=== PATIENT | male | born 1980 | race Caucasian/White ===

== ENCOUNTER 2018-12-30 07:14 | Inpatient (IN) ==
--- NOTE | 2018-12-30 07:45 | Diag Imaging Result Doc PS360 ---
EXAM: CT HEAD W/O CONTRAST INDICATION: stroke like sx TECHNIQUE: This exam was performed using automated exposure control, adjustment of mA or kV according to patient size, and/or use of iterative reconstruction technique. COMPARISON: None. FINDINGS: There is no definite acute infarct given the limited sensitivity of CT versus MRI. There is no discrete intracranial mass, mass effect, or intracranial hemorrhage. The surrounding soft tissues and bony structures are essentially unremarkable. IMPRESSION: No evidence of acute intracranial pathology. Electronically signed by Charbel Williamson 12/30/2018 7:43 AM
[2018-12-30] MEDS ORDERED: NS 1,000 ML IV PRN (07:47)
--- NOTE | 2018-12-30 07:47 | PROVIDER DOCUMENTATION ---
HPI-Neurological Disorder - General Chief Complaint: Stroke-Like Symptoms Stated Complaint: rt sided weakness Time Seen by Provider: 12/30/18 07:45 Source: patient Allergies/Adverse Reactions: Patient Allergies Allergy/AdvReac Type Severity Reaction Status Date / Time haloperidol [From Haldol] Allergy Unknown Verified 12/30/18 08:00 haloperidol lactate * Allergy Unknown Verified 12/30/18 08:00 [From Haldol] ketorolac tromethamine * Allergy HIVES Verified 12/30/18 08:00 [From Toradol] olanzapine [From Zyprexa] Allergy Unknown Verified 12/30/18 08:00 ziprasidone HCl * Allergy Unknown Verified 12/30/18 08:00 [From Geodon] ziprasidone mesylate * Allergy Unknown Verified 12/30/18 08:00 [From Geodon] Home Medications: Home Medication List Medication Instructions Recorded Confirmed Last Taken Type NK [No Home Medications] 12/30/18 12/30/18 Unknown History - History of Present Illness-Neuro Nature of Presenting Problem: pt says that donated plasma yest, the went to [employer], ate burgerm fries, few drinks, then went home, watched football. Since donating, has had increasing pain, weakness to R extremities, could not lift either this am, no dificulty with left. Called EMS. No fever, no headache, no trouble with speech. Onset/Duration: reports: gradual Timing: reports: getting worse Any recent trauma/injury?: reports: none Associated Symptoms: reports: denies symptoms Similar Symptoms Previously?: No Recently seen or treated by another doctor?: No Review of Systems - Adult - REVIEW OF SYSTEMS - ADULT Constitutional: reports: no symptoms reported Eyes: reports: no symptoms reported Ears, Nose, Mouth & Throat: reports: no symptoms reported Cardiovascular: reports: no symptoms reported Respiratory: reports: no symptoms reported Gastrointestinal: reports: no symptoms reported Genitourinary: reports: no symptoms reported Musculoskeletal: reports: no symptoms reported Neurological: reports: see HPI, dizziness/vertigo (light headed, swimmy headed) Psychiatric: reports: no symptoms reported, see HPI, anxiety Endocrine: reports: no symptoms reported Hematologic/Lymphatic: reports: no symptoms reported Past History - Adult - PAST MEDICAL HISTORY-ADULT Review of Records: reports: Medications Reviewed Major Childhood Illnesses: reports: denies history Cardiovascular: reports: denies history Respiratory: reports: denies history Gastrointestinal: reports: denies history Obstetrical/Gynecological: reports: denies history Genitourinary: reports: denies history Musculoskeletal: reports: denies history Neurological: reports: denies history Endocrine/Immune: reports: denies history Other Conditions: reports: denies history - PRIOR SURGERIES/PROCEDURES Surgical/Procedure History: reports: tonsillectomy - IMMUNIZATION STATUS Childhood Immunizations: See Nurse Assessment Flu Vaccine: See Nurse Assessment - FAMILY HISTORY Family History: reviewed, not pertinent Physical Exam- Neurological - Physical Exam-Neuro Initial Vital Signs Reviewed: Yes General Appearance: appears well, alert, mild distress Eye Exam: bilateral eye: normal inspection, PERRL, EOMI HENMT: normocephalic/atraumatic, moist mucous membranes, normal ENT inspection, pharynx normal Head Injury: no evidence of injury Neck: full range of motion, supple, normal inspection Respiratory: lungs clear, normal breath sounds, no pleuratic chest pain, no respiratory distress, no accessory muscle use Cardiovascular: regular rate, rhythm, no edema, no gallop, no murmur Abdominal Exam: normal bowel sounds, non tender, soft Extremity: other (decreased motion R extremities, cannot lift RLE against gravity, can only partially lift RUE, sl pronator drift) fruit peeler Exam: normal hearing, normal speech, PERRL, other (sl decrease sensation R CN VII, O/W intact) Neurologic: other (see above) Integumentary: normal color, normal turgor, warm/dry Psych/Mental Status: normal mood/affect, normal thought content, normal thought process, oriented x 3 - Glascow Coma Scale Best Eye Response: (4) open spontaneously Best Verbal Response: (5) oriented Best Motor Response: (6) obeys commands Progress - PLAN OF CARE/RESULTS Progress/Plan/Lab Results: Vital Signs - 8 hr 12/30/18 07:25 12/30/18 07:27 12/30/18 07:30 Temperature 98.3 F Pulse Rate 70 64 Respiratory Rate 20 27 H Blood Pressure 144/87 137/85 O2 Sat by Pulse Oximetry 96 96 95 12/30/18 07:31 12/30/18 07:45 12/30/18 08:00 Temperature Pulse Rate 60 63 58 L Respiratory Rate 21 18 23 Blood Pressure 134/76 O2 Sat by Pulse Oximetry 95 95 96 12/30/18 08:01 12/30/18 09:41 Temperature 98.0 F Pulse Rate 57 L 70 Respiratory Rate 16 16 Blood Pressure 134/76 127/79 O2 Sat by Pulse Oximetry 96 96 Laboratory Results - last 24 hr 12/30/18 12/30/18 12/30/18 07:34 07:56 07:56 WBC 10.68 RBC 4.99 Hgb 15.4 Hct 43.8 MCV 87.8 MCH 30.9 MCHC 35.2 RDW Std Deviation 12.9 Plt Count 206 MPV 10.2 Immature Gran % (Auto) 0.2 Neut % (Auto) 77.4 H Lymph % (Auto) 11.7 L [place] % (Auto) 9.7 H Eos % (Auto) 0.6 Baso % (Auto) 0.4 Immature Gran # (Auto) 0.02 Neut # (Auto) 8.27 H Lymph # (Auto) 1.25 [place] # (Auto) 1.04 H Eos # (Auto) 0.06 Baso # (Auto) 0.04 PT INR PTT (Actin FS) Sodium Potassium Chloride Carbon Dioxide Anion Gap BUN Creatinine Estimated GFR/1.73 m2 BUN/Creatinine Ratio Glucose POC Glucose 111 H Calculated Osmolality Calcium Magnesium Total Bilirubin AST ALT Alkaline Phosphatase Troponin T Total Protein Albumin Globulin Albumin/Globulin Ratio Urine Source Urine Color Urine Turbidity Urine pH Ur Specific [place] Urine Protein Ur Glucose (Stick) Ur Ketones (Stick) Urine Blood Urine Nitrite Urine Bilirubin Urobilinogen Dipstick Urine Leukocytes Urine WBC (Auto) Urine RBC (Auto) U Epithel Cells (Auto) Urine Bacteria (Auto) Urine Crystals Small Round Cells Urine Casts Urine Yeast-like Cells Urine Opiates Screen Ur Oxycodone Screen Ur Methadone, Qual Ur Barbiturates Screen Ur Phencyclidine Scrn Ur Amphetamines Screen U Benzodiazepines Scrn Urine Cocaine Screen U Cannabinoids Screen Plasma/Serum Ethyl Alc 12/30/18 12/30/18 12/30/18 07:56 07:56 07:56 WBC RBC Hgb Hct MCV MCH MCHC RDW Std Deviation Plt Count MPV Immature Gran % (Auto) Neut % (Auto) Lymph % (Auto) [place] % (Auto) Eos % (Auto) Baso % (Auto) Immature Gran # (Auto) Neut # (Auto) Lymph # (Auto) [place] # (Auto) Eos # (Auto) Baso # (Auto) PT 13.1 INR 0.98 PTT (Actin FS) 26.7 Sodium 138 Potassium 4.2 Chloride 105 Carbon Dioxide 24 L Anion Gap 9 BUN 14 Creatinine 0.6 L Estimated GFR/1.73 m2 > 60 BUN/Creatinine Ratio 23 Glucose 125 H POC Glucose Calculated Osmolality 278 Calcium 8.4 L Magnesium 2.0 Total Bilirubin 1.52 H AST 9 L ALT 14 Alkaline Phosphatase 61 Troponin T < 0.010 Total Protein 5.4 L Albumin 3.6 Globulin 1.8 Albumin/Globulin Ratio 2.0 Urine Source Urine Color Urine Turbidity Urine pH Ur Specific [place] Urine Protein Ur Glucose (Stick) Ur Ketones (Stick) Urine Blood Urine Nitrite Urine Bilirubin Urobilinogen Dipstick Urine Leukocytes Urine WBC (Auto) Urine RBC (Auto) U Epithel Cells (Auto) Urine Bacteria (Auto) Urine Crystals Small Round Cells Urine Casts Urine Yeast-like Cells Urine Opiates Screen Ur Oxycodone Screen Ur Methadone, Qual Ur Barbiturates Screen Ur Phencyclidine Scrn Ur Amphetamines Screen U Benzodiazepines Scrn Urine Cocaine Screen U Cannabinoids Screen Plasma/Serum Ethyl Alc 12/30/18 12/30/18 08:59 08:59 WBC RBC Hgb Hct MCV MCH MCHC RDW Std Deviation Plt Count MPV Immature Gran % (Auto) Neut % (Auto) Lymph % (Auto) [place] % (Auto) Eos % (Auto) Baso % (Auto) Immature Gran # (Auto) Neut # (Auto) Lymph # (Auto) [place] # (Auto) Eos # (Auto) Baso # (Auto) PT INR PTT (Actin FS) Sodium Potassium Chloride Carbon Dioxide Anion Gap BUN Creatinine Estimated GFR/1.73 m2 BUN/Creatinine Ratio Glucose POC Glucose Calculated Osmolality Calcium Magnesium Total Bilirubin AST ALT Alkaline Phosphatase Troponin T Total Protein Albumin Globulin Albumin/Globulin Ratio Urine Source CLEAN CATCH Urine Color YELLOW Urine Turbidity HAZY Urine pH 8.0 Ur Specific [place] 1.027 Urine Protein 30 A Ur Glucose (Stick) NEGATIVE Ur Ketones (Stick) NEGATIVE Urine Blood MODERATE A Urine Nitrite NEGATIVE Urine Bilirubin NEGATIVE Urobilinogen Dipstick 2 A Urine Leukocytes LARGE A Urine WBC (Auto) 10-20 A Urine RBC (Auto) TNTC A U Epithel Cells (Auto) <10 Urine Bacteria (Auto) 1+ Urine Crystals NONE SEEN Small Round Cells Not Reportable Urine Casts Not Reportable Urine Yeast-like Cells Not Reportable Urine Opiates Screen NONE DETECTED Ur Oxycodone Screen NONE DETECTED Ur Methadone, Qual NONE DETECTED Ur Barbiturates Screen NONE DETECTED Ur Phencyclidine Scrn NONE DETECTED Ur Amphetamines Screen NONE DETECTED U Benzodiazepines Scrn NONE DETECTED Urine Cocaine Screen NONE DETECTED U Cannabinoids Screen PRESUMPTIVE POSITIVE A Plasma/Serum Ethyl Alc Orders Category Date Time Status Cardiac Monitoring DIRECTED Care 12/30/18 07:47 Active Finger Stick Blood Sugar (ED) DIRECTED Care 12/30/18 07:47 Completed Misc. NRSG Communication Order DIRECTED Care 12/30/18 07:47 Active Saline Loc NOW Care 12/30/18 07:47 Active CHEST-PORTABLE [RAD] Stat Exams 12/30/18 07:[address] HEAD W/O CONTRAST [CT] Stat Exams 12/30/18 07:15 Completed ALCOHOL BLOOD Stat Lab 12/30/18 07:56 Completed CBC WITH ELECTRONIC DIFF [HEME] Stat Lab 12/30/18 07:56 Completed COMPREHENSIVE METABOLIC PANEL [CHEM] Stat Lab 12/30/18 07:56 Completed MAGNESIUM [CHEM] Stat Lab 12/30/18 07:56 Completed PROTIME WITH INR [COAG] Stat Lab 12/30/18 07:56 Completed PTT [COAG] Stat Lab 12/30/18 07:56 Completed TROPONIN T Stat Lab 12/30/18 07:56 Completed URINALYSIS W/POSS RFLX CULT [URINALYSIS] Stat Lab 12/30/18 08:59 Completed URINE CULTURE [RM] Routine Lab 12/30/18 09:36 Received URINE DRUG SCREEN Stat Lab 12/30/18 08:59 Completed URINE MANUAL MICROSCOPIC [URINALYSIS] Stat Lab 12/30/18 08:59 Completed 0.9% Sodium Chloride Inj [Ns] 1,000 ml Med 12/30/18 07:47 Active IV 1,000 mls/hr CefTRIAXONE [Rocephin] 1 gm Med 12/30/18 10:17 Discontinued 0.9% Sodium Chloride Inj [Ns] 50 ml IV NOW EKG [EKG] Stat Ther 12/30/18 07:47 Ordered Result Diagrams: 12/30/18 07:56 12/30/18 07:56 - EKG 1 Time of EKG reading by physician:: 07:38 EKG Read and Signed by:: Suresh Bello EKG Interpretation (*Must complete 3 of following elements*): Normal Rate: 59 Rhythm: NSR QRS: normal ST Wave: normal - XRAY 1 XRAY Study: Chest Impression: Normal - CT/MRI 1 CT Study: Head Impression: Normal - CONSULTS/PCP/HOSPITALIST Notification #1 *Consult/PCP/Hospitalist*: Halie Time Discussed: 10:30 Consult Disposition: Will see in ED, Admit Departure - Departure Date of Disposition Decision: 12/30/18 Time of Disposition Decision: 10:30 (0) DIAGNOSIS: CVA (cerebral vascular accident) Disposition: ADMITTED INPATIENT 09 Certified Medical Emergency: Emergent Condition: Good Referrals and Follow-Ups: None,PCP [Primary Care Provider] - Discharge Education: Steps to Quit Smoking, [id number] - Critical Care Note This patient required my direct & personal management of CC.: No Attestation - Physician/ SARAH Attestation Patient care was provided by Advanced Practice Provider:: No The physician spent face to face time with patient:: Yes Advanced Practice Provider documentation review:: Supervising physician onsite and consulted in the evaluation and care of this patient. The physician did have a face to face encounter with the patient. - NIH Stroke Scale Level of Consciousness: 0-Alert LOC Questions (ask month and age): 0-Answers Both Correctly LOC Commands (ask to open & close eyes;make a fist, let go): 0-Obeys Both Correctly Best Gaze (horizontal eye movement): 0-Normal Visual (use finger movement, counting or visual threat): 0-No Visual Loss Facial Palsy (show teeth or raise eyebrows & close eyes tght: 0-Symmetrical Movement Motor Function-left arm: 0-Normal Motor Function-right arm: 2-Some Effort Against [place] Motor Function-left le-Normal Motor Function-right le-No Effort Against [place] Limb Ataxia(geaspg-avlg-cxklhw, or heel to ramírez): 1-Present in one limb Sensory(pin prick to face,arms,trunk,legs-compare side/side): 0-No Ataxia Best Language(name item/read sentence.Ex-Down to Earth): 0-No Aphasia Dysarthria(Pt read words or say words Ex.Mama,Tip-Top,Thanks: 0-Normal Articulation Extinction and Inattention: 0-Normal Stroke tPA Guidelines - Inclusion Criteria for IV tPA 18 years old or older: Yes Ischemic stroke with measurable deficit: No Onset <3 hours ago *OR* 3-4.5 hours ago: No
[2018-12-30 08:19] LABS: BASO# 0.04 X1000 (0.0-0.2); BASO% 0.4 % (0.0-0.8); EOS# 0.06 X1000 (0.0-0.7); EOS% 0.6 % (0.0-10.0); HEMATOCRIT 43.8 % (42.0-52.0); HEMOGLOBIN 15.4 g/dL (14.0-18.0); IMM GRAN# 0.02 X1000 (0.0-0.04); IMM GRAN% 0.2 % (0.0-0.5); LYMPH# 1.25 X1000 (1.2-3.4); LYMPH% 11.7 % (20.5-51.1); MCH 30.9 PG (27-31); MCHC 35.2 g/dL (33-37); MCV 87.8 FL (81-99); MONO# 1.04 X1000 (0.11-0.59); MONO% 9.7 % (1.7-9.3); MPV 10.2 FL (7.4-10.4); NEUT# 8.27 X1000 (1.4-6.5); NEUT% 77.4 % (42.2-75.2); PLT 206 X1000 (130-400); RBC 4.99 XMIL (4.7-6.1); RDW 12.9 % (11.5-14.5); WBC 10.68 X1000 (4.8-10.8)
[2018-12-30 08:23] LABS: INR 0.98; PROTIME 13.1 Seconds (11.0-16.0)
[2018-12-30 08:24] LABS: PTT 26.7 Seconds (22.3-41.8)
[2018-12-30 08:29] LABS: AGAP 9; ALBUMIN 3.6 g/dL (3.5-5.0); ALKALINE PHOSPHATASE 61 U/L (32-122); BUN 14 mg/dL (8-22); CALCIUM 8.4 mg/dL (8.8-10.2); CHLORIDE 105 mmol/L (98-107); COSMO 278; CREATININE 0.6 mg/dL (0.7-1.2); ESTIMATED GFR > 60; GLUCOSE 125 mg/dL (70-104); GOT 9 U/L (10-34); GPT 14 U/L (10-44); POTASSIUM 4.2 mmol/L (3.5-5.1); SODIUM 138 mmol/L (136-145); TCO2 24 mmol/L (25-35); TOTAL BILIRUBIN 1.52 mg/dL (0.20-1.00); TOTAL PROTEIN 5.4 g/dL (6.3-8.3)
--- NOTE | 2018-12-30 08:29 | Diag Imaging Result Doc PS360 ---
EXAM: CHEST-PORTABLE INDICATION: stroke like symptoms TECHNIQUE: One view COMPARISON: 07/09/2017 FINDINGS: The lungs are grossly clear. There is no discrete pleural fluid collection or pneumothorax. The cardiomediastinal silhouette and central vasculature are grossly unremarkable. IMPRESSION: No evidence of acute pathology by plain radiograph. Electronically signed by Charbel Williamson 12/30/2018 8:27 AM
[2018-12-30 09:12] LABS: URINE SOURCE CLEAN CATCH
[2018-12-30 09:17] LABS: BILIRUBIN URINE NEGATIVE (NEGATIVE); BLOOD URINE MODERATE (NEGATIVE); COLOR YELLOW; GLUCOSE URINE NEGATIVE (NEGATIVE); KETONE URINE NEGATIVE (NEGATIVE); LEUKOCYTES URINE LARGE (NEGATIVE); NITRITE URINE NEGATIVE (NEGATIVE); PROTEIN URINE 30 mg/dL (NEGATIVE); SP GRAVITY URINE 1.027; TURBIDITY URINE HAZY (CLEAR); UROBILINOGEN URINE 2 mg/dL (NORMAL)
[2018-12-30 09:31] LABS: UR EPITHELIAL CELLS <10 /HPF (<10); URINE BACTERIA 1+ /HPF; URINE RBC TNTC /HPF (<10)
[2018-12-30 09:35] LABS: URINE CRYSTALS NONE SEEN
[2018-12-30 10:07] LABS: UR AMPHETAMINES QUAL NONE DETECTED (NONE DETECT); UR BARBITUATES QUAL NONE DETECTED (NONE DETECT); UR BENZODIAZEPIN QUAL NONE DETECTED (NONE DETECT); UR CANNABINOIDS QUAL PRESUMPTIVE POSITIVE (NONE DETECT); UR COCAINE QUAL NONE DETECTED (NONE DETECT); UR METHADONE QUAL NONE DETECTED (NONE DETECT); UR OPIATES QUAL NONE DETECTED (NONE DETECT); UR OXYCODONE QUAL NONE DETECTED (NONE DETECT); UR PCP QUAL NONE DETECTED (NONE DETECT)
[2018-12-30] MEDS ORDERED: ROCEPHIN 1 GM in NS 50 ML IV ONE (10:17)
[2018-12-30] MEDS ORDERED: ASPIRIN PO ONE (11:11)
[2018-12-30] MEDS ORDERED: TYLENOL PO PRN (11:57)
[2018-12-30] MEDS ORDERED: LOVENOX SUBQ SCH (11:57)
[2018-12-30] MEDS ORDERED: ZOFRAN IV PRN (11:57)
[2018-12-30] MEDS: NS 1,000 ML IV SCH (12:30)
--- NOTE | 2018-12-30 13:50 | HISTORY AND PHYSICAL ---
PRIMARY CARE PHYSICIAN: None. CHIEF COMPLAINT: Right-sided upper and lower extremity weakness, dizziness after giving plasma yesterday at a local donation site. HISTORY OF PRESENTING ILLNESS: This is a 38-year-old male who presents to [facility] with complaints of right-sided upper and lower extremity weakness. States that around midnight last night, he noticed that he could not move his right arm or leg. States yesterday he donated plasma yesterday morning. Noticed once he returned home that he was having some dizziness, weakness to the right upper extremity initially that progressed on down to the right lower extremity to the point now that he has no movement, no hand grasp in the right hand. His other neurological assessment is within normal limits. We did a CT of the head that showed no evidence of acute intracranial pathology. He has no previous medical history. His blood pressure on arrival was 144/87, but he will be admitted for further evaluation and treatment. PAST MEDICAL HISTORY: None. PAST SURGICAL HISTORY: Thumb surgery with bone graft, a right knee compound fracture and surgery, and tonsillectomy. FAMILY HISTORY: His grandfather had a CVA and he states he has a cousin who is 28 and had a CVA. SOCIAL HISTORY: He currently lives with family. Smokes a pack of cigarettes a day and has done so for 15 years. Denies any alcohol use and uses marijuana occasionally. ALLERGIES: Haldol, Toradol, Zyprexa, and Geodon. HOME MEDICATIONS: He does not take any medications on a routine basis. LABORATORY DATA: Showed a white blood cell count of 10.68, hemoglobin 15.4, hematocrit 43.8, platelets 206,000. PT and INR of 13.1 and 0.98. Sodium of 138, potassium 4.2, chloride 105, CO2 24, BUN of 14, creatinine 0.6, glucose of 125, magnesium 2. Troponin was negative at less than 0.010. Urinalysis showed negative nitrites but large leukocytes and 1+ bacteria. Urine drug screen was presumptive positive for cannabinoids. Serum plasma alcohol level showed none detected. RADIOLOGIC STUDIES: CT of the head showed no evidence of acute intracranial pathology. Chest x- ray showed no evidence of acute pathology by plain radiograph. REVIEW OF SYSTEMS: He denied any fever, chills, blurred vision. He was positive for some dizziness, increased weakness to his right upper and lower extremity. Denied any chest pain, coughing, shortness of breath denied any abdominal pain, constipation, diarrhea, or burning or hurting with urination. PHYSICAL EXAMINATION: VITAL SIGNS: On arrival he had a temperature of 98.3 degrees, pulse of 70, respirations 20, blood pressure 144/87, and was saturating 96% on room air. GENERAL: This is a 38-year-old male who is lying in the bed and answers questions appropriately. HEENT: Normocephalic and atraumatic. Normal ENT inspection. Oropharynx and nares are clear. Eyes: Pupils are equal, round, reactive to light and accommodation. Extraocular movements are intact. NECK: Normal inspection. Normal range of motion. LUNGS: Clear to auscultation bilaterally with equal lung expansion and chest wall movement. HEART: Regular rate and rhythm. No murmurs, rubs, or gallops. ABDOMEN: Soft, nontender, nondistended. Bowel sounds are present x4 quadrants. MUSCULOSKELETAL: He had 5/5 strength to his left upper and lower extremity. 0 strength to his upper right and lower right extremity. 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 I did check his right foot reflex and it did move, but only minimally. States that he did have sensation to the right foot and was able to move his toes minimally as well. ASSESSMENT: 1. Transient ischemic attack versus cerebrovascular accident. 2. Urinary tract infection. 3. Tobacco abuse. 4. Marijuana abuse. PLAN: He will be admitted to the medical unit. Placed on telemetry. Placed on a healthy heart diet. We will consult Neurology. Do an MRI of the brain with and without contrast in the a.m. We will check an echocardiogram and carotid ultrasound today. Place him on Rocephin 1 gram IV q.24 h., normal saline at 75 mL an hour, Lovenox 40 mg subcutaneous q.24 h. for DVT prophylaxis, nicotine patch 21 mg transdermally daily. Discussed smoking cessation with this patient who verbalized understanding. We will check a lipid profile today and recheck a CBC and BMP in the a.m. Further orders after seen by attending and by aerodynamic consultant. Dictated by MELLY Manning for Peter Ambrose MD cc: MELLY Manning MD
[2018-12-30] MEDS: NICODERM PATCH TD SCH (14:06)
[2018-12-30] MEDS ORDERED: TORADOL IV PRN (14:47)
--- NOTE | 2018-12-30 14:49 | ECHO REPORT ---
ORDER DATE: 12/30/2018 FINDINGS: 1. The right atrium is normal in size at 3.6 cm. 2. Trace tricuspid regurgitation. RV systolic pressure of 26. 3. Normal RV size and systolic function. 4. No significant pulmonic insufficiency. 5. Normal left atrial size at 3.8 cm. 6. No mitral valve prolapse. Mild mitral regurgitation. 7. Normal LV size. End-diastolic dimension of 4.1. Mild left ventricular hypertrophy with a posterior and interventricular septal wall thickness of 1.0 and 1.2 cm respectively. Normal LV systolic function. Estimated EF is 65% to 70% with normal wall motion. 8. Aortic valve opens well. It is trileaflet. No evidence of stenosis or insufficiency. 9. Aorta appears normal on visualized segments. 10. No pericardial effusion seen. cc: MD Karina Jc CRNP
--- NOTE | 2018-12-30 15:25 | HISTORY AND PHYSICAL ---
ADDENDUM: Mr. Oseguera is a 38-year-old male with no remarkable past medical history except for some depression and anxiety, came to the emergency department because he is not able to move the entire right side of his body. Mr. Oseguera refers that yesterday he went to donate plasma. After that, he felt good. He normally does it every now and then. But then late in the evening he started feeling some weakness in the entire right side. By 11 p.m. he could hardly move his side, so his had to be helping him every now and then. This morning he could not move at all the right side. He said it has also been hurting him a lot, so he came to the emergency department and because he is not able to move, he has been admitted to rule out stroke. His initial vitals were all within normal range. On his physical exam he is not moving the right side. However, when I was doing Babinski on the right foot, he spontaneously moved his right upper extremity. Then I told him "oh now you are able to move your right upper extremity," he immediately dropped it and said "oh now it cannot move." In any case, on multiple occasions he was able to move both his right lower extremity and the upper extremity intermittently. At one point he said he was able to move it a little bit. Otherwise, his physical exam is unremarkable. I have also reviewed his labs, completely unremarkable. His urine is slightly dirty, but he denies any urinary symptoms. His UDS is positive for cannabinoids. His chest x-ray has been reviewed, no evidence of any pathology. CT scan is also unremarkable. ASSESSMENT: 1. Alleged inability to move the right side. I am not 100% certain if this is a neurological or not We are going to observe him overnight. As I said, during my physical exam he was able to move intermittently for me, but he was more concerned of getting something for pain. 2. History of major depressive disorder with psychotic features, anxiety disorder, and polysubstance abuse. This is per his discharge summary from [place] on June 25, 2015. The discharge medications on that list seems to suggest the patient is supposed to be on Neurontin, Effexor, Cogentin, Geodon, Remeron, and Ambien. However, the patient is not taking any presently. PLAN: So in general, Mr. Arceo will be admitted under neuro observation. We will continue with gentle hydration. Re-evaluate his neurological findings tomorrow morning. We will order an MRI. Neurology has also been consulted. We will use Toradol and Tylenol for pain control and evaluate him tomorrow. Please refer to the details of the history and physical which has been dictated by the BAG END SEWER in the chart. cc: Peter Ambrose MD MTDD
[2018-12-30] MEDS ORDERED: OFIRMEV 1000 MG/ISOTONIC SOLN 1,000 MG/100 ML BOTTLE IV PRN (15:47)
--- NOTE | 2018-12-30 17:56 | EKG Report ---
Test Performed on : 12/30/2018 07:36:26 AM Test Reason : Stroke like symptoms Blood Pressure : / mmHG Vent. Rate : 059 BPM Atrial Rate : 059 BPM P-R Int : 144 ms QRS Dur : 074 ms QT Int : 420 ms P-R-T Axes : 024 020 036 degrees QTc Int : 415 ms Sinus bradycardia. Otherwise normal ECG When compared with ECG of 09-JUL-2017 13:06, No significant change was found Unconfirmed Result
[2018-12-30] MEDS ORDERED: PRAVACHOL PO SCH (21:00)
[2018-12-31] MEDS: NS 1,000 ML IV SCH (01:21)
[2018-12-31 07:12] LABS: BASO# 0.04 X1000 (0.0-0.2); BASO% 0.6 % (0.0-0.8); EOS# 0.25 X1000 (0.0-0.7); EOS% 3.6 % (0.0-10.0); HEMATOCRIT 40.7 % (42.0-52.0); HEMOGLOBIN 14.2 g/dL (14.0-18.0); IMM GRAN# 0.02 X1000 (0.0-0.04); IMM GRAN% 0.3 % (0.0-0.5); LYMPH# 1.61 X1000 (1.2-3.4); MCH 31.2 PG (27-31); MCHC 34.9 g/dL (33-37); MCV 89.5 FL (81-99); MONO# 0.61 X1000 (0.11-0.59); MONO% 8.7 % (1.7-9.3); MPV 10.6 FL (7.4-10.4); NEUT# 4.48 X1000 (1.4-6.5); NEUT% 63.8 % (42.2-75.2); PLT 177 X1000 (130-400); RBC 4.55 XMIL (4.7-6.1); RDW 12.5 % (11.5-14.5); WBC 7.01 X1000 (4.8-10.8)
[2018-12-31 07:32] VITALS: BP 129/65
[2018-12-31 07:47] LABS: AGAP 9; BUN 10 mg/dL (8-22); CALCIUM 7.7 mg/dL (8.8-10.2); CHLORIDE 106 mmol/L (98-107); COSMO 274; CREATININE 0.7 mg/dL (0.7-1.2); ESTIMATED GFR > 60; GLUCOSE 127 mg/dL (70-104); SODIUM 137 mmol/L (136-145); TCO2 22 mmol/L (25-35)
[2018-12-31] MEDS: NICODERM PATCH TD SCH (08:08)
[2018-12-31] MEDS ORDERED: ASPIRIN PO SCH (09:00)
[2018-12-31] MEDS ORDERED: ROCEPHIN 1 GM in NS 50 ML IV SCH (11:00)
--- NOTE | 2018-12-31 16:17 | DISCHARGE SUMMARY ---
ADMISSION DATE: 12/30/2018 DISCHARGE DATE: 12/31/2018 DATE OF DISCHARGE/AGAINST MEDICAL ADVICE: 12/31/2018 DISPOSITION: The patient will decide. ADMISSION DIAGNOSES: 1. Transient ischemic attack versus cerebrovascular accident. 2. Tobacco abuse. 3. Marijuana abuse. DIAGNOSES AT THE TIME OF DISCHARGE: 1. Alleged inability to move the right side, questionable for cerebrovascular accident versus somatization disorder. 2. History of major depressive disorder with psychotic features, anxiety disorder, and polysubstance abuse, as per Lionel Perez's documentation from 06/25/2015. 3. Cannabis abuse with urine toxicology positive. PRESENTING COMPLAINT: Right side weakness. HISTORY OF PRESENT COMPLAINT: Mr. Oseguera is a 38-year-old gentleman, who came to the emergency department because he was not able to move the right side of his body after he donated plasma. Upon presenting, it was noted that he was out of the window of tPA, and a CT scan of the head showed no evidence of acute intracranial pathology. Mr. Oseguera was admitted to the medical floor under telemonitoring for stroke workup. HOSPITAL COURSE: I did evaluate Mr. Oseguera on the day of admission. During my evaluation at some point, he was able to move completely his right upper extremity. He was also making an attempt to move the right lower extremity when I was doing Babinski. At some point, he did tell me that he was not moving at his will. It is also documented by the night nurse at about 1:23 this morning that it was noted that Mr. Oseguera was able to move his right upper extremity above his head and that when bad he was requested the right arm band to be verified, patient was able to spontaneously move the entire arm from the head position onto the bed without any difficulties. It is documented that the patient's spontaneous right arm movements were noted bilaterally. This morning, I was called and notified by the nursing staff that Mr. Oseguera referred that he feels a lot better and that he was going to leave against medical advice. He was advised on multiple occasions to stay and complete the workup for stroke, but apparently he was very adamant, he wanted to go against medical advice, and he did sign. Mr. Oseguera therefore left the compound against medical advice. VITAL SIGNS: At the time of him living, blood pressure was 129/65, pulse of 52, respiration was 20, temperature was 98.8 degrees patient was saturating 97%. DIAGNOSTIC STUDIES: I have also reviewed his echocardiogram report which was unremarkable. There was a series of laboratory data that was pending as well as an MRI which was pending, which patient did not get to do before he left AMA. cc: Peter Ambrose MD
== END 2018-12-31 09:53 | disposition left against medical advice (07) | DRG 882 ==
LOC: SUPCPDRO → ED 07:14 → 3N 11:48
PROVIDERS: ATTEND Internal Medicine